=== PATIENT | female | born 1965 | race Asian ===

== ENCOUNTER → 2023-10-28 15:00 | Outpatient (REF) | payer BC, SELFPAY | LOC: RAD 15:00 | PROVIDERS: ATTENDING PHYSICIAN Internal Medicine | DX: R05.9 Cough, unspecified (principal) | CPT/HCPCS: 71046 ==

== ENCOUNTER → 2024-12-29 13:53 | Outpatient (REF) | payer BC, SELFPAY | LOC: RAD 13:53 | PROVIDERS: ATTENDING PHYSICIAN Obstetrics & Gynecology; FAMILY PHYSICIAN Internal Medicine | DX: M85.89 Other specified disorders of bone density and structure, multiple sites (principal) | CPT/HCPCS: 77080 ==